=== PATIENT | male | born 1955 | race African-American/Black ===

== ENCOUNTER 2019-11-22 | Emergency (ER) | payer MEDICARE ==
[2019-11-22 18:48] LABS: ALBUMIN 4.4 g/dL (3.2-5.0); ALKALINE PHOSPHATASE 96 u/l (38-126); ANION GAP 14 (6-22 (CALC)); BILIRUBIN, TOTAL 0.6 mg/dL (0.0-1.4); BUN 12 mg/dL (8-23); BUN/CREATININE RATIO 12 (12-20 (CALC)); CARBON DIOXIDE 24 mmol/l (22-30); CHLORIDE 107 mmol/l (95-108); GFR > 60 ML/MIN (>=60 (CALC)); GFR FOR AFR.AMER. > 60 ML/MIN (>=60 (CALC)); POTASSIUM 4.2 mmol/l (3.5-5.1); SGOT/AST 24 u/l (19-48); SODIUM 141 mmol/l (137-146); TOTAL PROTEIN 8.3 g/dL (6.3-8.2)
[2019-11-22 18:49] LABS: HEMATOCRIT 33.1 % (39.0-50.0); HEMOGLOBIN 10.5 g/dl (14.0-18.0); IMMATURE GRANULOCYTES 0.2 % (0.0-5.0); MEAN CELL VOLUME 86.4 fL CALC (80.0-100.0); MEAN CORPUSCULAR HGB 27.4 pG CALC (26.0-32.0); MEAN CORPUSCULAR HGB CONC 31.7 g/L CALC (32.0-36.0); NEUT# 5.9 thou/uL (1.82-7.42); RED BLOOD COUNT 3.83 mill/uL (4.70-6.10); RED CELL DISTRI WIDTH 13.5 % (11.5-15.5)
[2019-11-22] MEDS ORDERED: LASIX20 MG PO ×2 (19:22→19:26)
== END 2019-11-22 19:34 | disposition home or self-care (01) ==
PROVIDERS: Emergency Medicine
DX: R60.0 Localized edema (principal); I10 Essential (primary) hypertension; E11.9 Type 2 diabetes mellitus without complications; F17.290 Nicotine dependence, other tobacco product, uncomplicated; M79.89 Other specified soft tissue disorders

== ENCOUNTER 2020-07-19 20:02 | Emergency (ER) | payer MEDICARE ==
[~2020-07-19] VITALS: Ht 190.5 cm; Wt 90.0 kg
[~2020-07-19 20:02] MED LIST: LASIX20 MG PO
[2020-07-19 21:13] LABS: URINE BILIRUBIN - DIPSTICK NEGATIVE (NEGATIVE); URINE BLOOD DIPSTICK LARGE (NEGATIVE); URINE CLARITY CLOUDY; URINE COLOR RED; URINE GLUCOSE - DIPSTICK 100 mg/dL (NEGATIVE); URINE KETONE 15 mg/dL (NEGATIVE); URINE LEUK ESTERASE MODERATE (Negative); URINE NITRITE - DIPSTICK POSITIVE (Negative); URINE PH 7.5 (4.5-8.0); URINE PROTEIN - DIPSTICK >=300 mg/dL (NEG-TRACE); URINE SPECIFIC GRAVITY 1.015
[2020-07-19 21:26] LABS: URINE BACTERIA FEW hpf; URINE RBC TNTC RBC/hpf (0-5); URINE SQUAMOUS EPITHELIAL CELL FEW EPI/hpf (0-FEW)
[2020-07-19] MEDS ORDERED: CIPROFLOXACN500 MG PO (22:23)
[2020-07-19 23:00] VITALS: BP 147/82
== END 2020-07-19 23:00 | disposition home or self-care (01) ==
LOC: ED 20:02
PROVIDERS: Emergency Medicine
DX: N39.0 Urinary tract infection, site not specified (principal); R31.9 Hematuria, unspecified; E11.9 Type 2 diabetes mellitus without complications; I10 Essential (primary) hypertension; F17.200 Nicotine dependence, unspecified, uncomplicated

== ENCOUNTER 2020-11-11 12:26 | Emergency (ER) | payer SELFPAY ==
[~2020-11-11] VITALS: Ht 190.5 cm; Wt 101.0 kg
[~2020-11-11 12:26] MED LIST changes: +CIPROFLOXACN500 MG PO
[2020-11-11 13:57] LABS: IMMATURE GRANULOCYTES 0.2 % (0.0-5.0); MEAN CELL VOLUME 89.8 fL CALC (80.0-100.0); MEAN CORPUSCULAR HGB 28.2 pG CALC (26.0-32.0); MEAN CORPUSCULAR HGB CONC 31.4 g/dL CAL (32.0-36.0); NEUT# 3.96 thou/uL (1.82-7.42); RED BLOOD COUNT 2.66 mill/uL (4.70-6.10); RED CELL DISTRI WIDTH 14.6 % (11.5-15.5)
[2020-11-11] MEDS ORDERED: LISI20TA5 (13:57)
[2020-11-11] MEDS ORDERED: METFORMIN500 M2 PO (13:58)
[2020-11-11 13:59] LABS: HEMATOCRIT 23.9 % (39.0-50.0); HEMOGLOBIN 7.5 g/dl (14.0-18.0)
[2020-11-11 14:10] LABS: ALBUMIN 4.2 g/dL (3.2-5.0); BILIRUBIN, TOTAL 0.4 mg/dL (0.0-1.4); CREATININE 3.5 mg/dL (0.7-1.3); POTASSIUM 4.2 mmol/l (3.5-5.1); TOTAL PROTEIN 7.8 g/dL (6.3-8.2)
[2020-11-11 15:06] LABS: URINE BILIRUBIN - DIPSTICK NEGATIVE (NEGATIVE); URINE BLOOD DIPSTICK NEGATIVE (NEGATIVE); URINE COLOR YELLOW; URINE GLUCOSE - DIPSTICK NEGATIVE (NEGATIVE); URINE KETONE NEGATIVE (NEGATIVE); URINE LEUK ESTERASE NEGATIVE (NEGATIVE); URINE NITRITE - DIPSTICK NEGATIVE (Negative); URINE PROTEIN - DIPSTICK TRACE mg/dL (NEG-TRACE); URINE SPECIFIC GRAVITY <=1.005; URINE UROBILINOGEN - DIPSTICK 0.2 E.U./dL (0.2)
[2020-11-11 16:13] VITALS: BP 180/83
== END 2020-11-11 16:24 | disposition left against medical advice (07) | DRG 815 ==
LOC: ED 12:26
PROVIDERS: Family Medicine
DX: R59.1 Generalized enlarged lymph nodes (principal); I82.401 Acute embolism and thrombosis of unspecified deep veins of right lower extremity; N13.30 Unspecified hydronephrosis; M89.8X0 Other specified disorders of bone, multiple sites; E11.9 Type 2 diabetes mellitus without complications; I10 Essential (primary) hypertension; Z79.84 Long term (current) use of oral hypoglycemic drugs; Z91.19 Patient's noncompliance with other medical treatment and regimen
CPT/HCPCS: J1650

== ENCOUNTER 2020-11-11 21:39 | Emergency (ER) | payer SELFPAY ==
[~2020-11-11] VITALS: Ht 190.5 cm; Wt 102.0 kg
[~2020-11-11 21:39] MED LIST changes: +LISI20TA5; +METFORMIN500 M2 PO
[2020-11-12 01:26] VITALS: BP 157/78
== END 2020-11-12 01:26 | DRG 815 ==
LOC: ED 21:39
DX: R59.1 Generalized enlarged lymph nodes (principal); I82.401 Acute embolism and thrombosis of unspecified deep veins of right lower extremity; N13.30 Unspecified hydronephrosis; N17.9 Acute kidney failure, unspecified; E11.9 Type 2 diabetes mellitus without complications; I10 Essential (primary) hypertension; F17.200 Nicotine dependence, unspecified, uncomplicated; Z79.84 Long term (current) use of oral hypoglycemic drugs
CPT/HCPCS: J1650